=== PATIENT | female | born 1975 | race Caucasian/White ===

== ENCOUNTER 2020-07-23 11:05 | Emergency (ER) | payer OTHER ==
[2020-07-23 11:13] VITALS: BP 126/88; PULSE 88; RESP 16; TEMP 98
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
== END 2020-07-23 12:15 | disposition home or self-care (01) ==
LOC: EC 11:05
DX: S00.511A Abrasion of lip, initial encounter (principal); R51.9 Headache, unspecified; M54.2 Cervicalgia; Z79.82 Long term (current) use of aspirin; Z88.6 Allergy status to analgesic agent; Z88.0 Allergy status to penicillin; Z88.1 Allergy status to other antibiotic agents; Z91.040 Latex allergy status; Z88.5 Allergy status to narcotic agent; Z88.8 Allergy status to other drugs, medicaments and biological substances; Z87.891 Personal history of nicotine dependence; Y04.2XXA Assault by strike against or bumped into by another person, initial encounter; Y92.69 Other specified industrial and construction area as the place of occurrence of the external cause; Y99.0 Civilian activity done for income or pay
CPT/HCPCS: 70450; 72125; 99283